=== PATIENT | male | born 1965 | race Caucasian/White ===

== ENCOUNTER 2018-08-04 07:48 | Day surgery (SDC) | payer MEDICARE, MEDICAID ==
[2018-08-03 14:43] VITALS: BMI 33.8
[2018-08-04 08:29] LABS: Hemoglobin 12.5 g/dL (14.0-18.0); Mean Corpuscular HGB CONC 32.4 g/dL (32.0-36.0); Mean Corpuscular Hemoglobin 26.7 pg (27.0-31.0); Mean Corpuscular Volume 82.5 fL (78.0-98.0); Platelet Count 347 thou/uL (130-400); RBC Distribution Width 13.3 % (11.5-14.5); Red Blood Cell (RBC) Count 4.68 mill/uL (4.70-6.10); White Blood Cell (WBC) Count 6.8 thou/uL (4.8-10.8)
[2018-08-04 08:43] LABS: PTT 27.5 SEC (22.9-36.1); Prothrombin Time 12.8 SEC (12.0-14.7)
[2018-08-04 08:54] LABS: Band 3 % (5-11); Eosinophils 1 % (0-10); Lymphocytes 29 % (21-51); MDiff Complete? YES; Monocytes 8 % (0-10); Neutrophil 59 % (42-75); RBC Morphology Normal
[2018-08-04 13:34] VITALS: BP 155/73; TEMP 98.5
--- NOTE | 2018-08-04 15:15 | CT ---
CT GUIDED PUBIC CATHETER PLACEMENT: DATE: 08/04/2018. HISTORY: Neurogenic bladder. Beach catheter in place. TECHNIQUE: The procedure including the risks and complications were explained to the patient and the patient's f amily and informed consent was obtained. The patient was placed on the CT scan table in the supine p osition. A noncontrasted CT scan was obtained at the level of the pelvis with grid localizer in place after th e bladder was filled with approximately 250 mL of normal saline. An area was then marked, and the ar e was meticulously prepped and drained in the usual sterile fashion. The skin and subcutaneous tissues were infiltrated with buffered 1% Lidocaine for local anesthesia at the intended puncture site. A small skin incision was made. A 12 Green[place]ic suprapubic catheter with inner cannula and trocar were advanced into the urinary bladder. The trocar and stiff inner cannula were removed, and the Beach catheter was advanced. There was re turn of clear urine. The distal balloon was filled with 10 mL of sterile water. The catheter was pl aced to gravity drainage. Three axial noncontrasted CT images were obtained demonstrating the suprap ubic catheter in place within the urinary bladder. The catheter was sutured in place utilizing 2-0 E thilon suture material. A dry sterile dressing was placed. The patient tolerated the procedure well and without immediate complication. The patient was briefly monitored in the radiology department and the patient was then discharged to Dr. Noel's [facility] for removal of the Beach catheter. IMPRESSION: Technically successful CT guided suprapubic catheter placement. POS: MARIA ELENA
== END 2018-08-04 11:40 ==
LOC: CT 07:48
PROVIDERS: ATTEND Urology
PROC: 0T9B30Z Drainage of Bladder with Drainage Device, Percutaneous Approach (ICD-10-PCS; principal; 2018-08-04)
DX: N31.9 Neuromuscular dysfunction of bladder, unspecified (principal); E11.9 Type 2 diabetes mellitus without complications; I25.10 Atherosclerotic heart disease of native coronary artery without angina pectoris; I10 Essential (primary) hypertension; F31.9 Bipolar disorder, unspecified; Z86.73 Personal history of transient ischemic attack (TIA), and cerebral infarction without residual deficits; Z86.718 Personal history of other venous thrombosis and embolism; Z79.01 Long term (current) use of anticoagulants; Z79.4 Long term (current) use of insulin; Z79.82 Long term (current) use of aspirin; Z79.899 Other long term (current) drug therapy
CPT/HCPCS: 51102; 77002; 85025; 85610; 85730; C2627; 36415

== ENCOUNTER 2018-10-05 08:36 | Day surgery (SDC) | payer MEDICARE, MEDICAID ==
[2018-10-04 16:14] VITALS: BMI 33.0
[2018-10-05 08:50] LABS: #Eosinphils 0.1 thou/uL (0.0-0.7); #Lymphocytes 1.6 thou/uL (1.20-3.40); #Monocytes 0.9 thou/uL (0.11-0.59); %Basophils 0.3 % (0.0-1.0); %Eosinophils 1.2 % (0.0-10.0); %Lymphocytes 16.2 % (21.0-51.0); %Neutrophils 73.2 % (42.0-75.0); Hemoglobin 11.8 g/dL (14.0-18.0); Mean Corpuscular HGB CONC 31.9 g/dL (32.0-36.0); Mean Corpuscular Hemoglobin 26.5 pg (27.0-31.0); Mean Corpuscular Volume 82.9 fL (78.0-98.0); Mean Platelet Volume 6.7 fL (7.4-10.4); Platelet Count 308 thou/uL (130-400); RBC Distribution Width 13.8 % (11.5-14.5); Red Blood Cell (RBC) Count 4.47 mill/uL (4.70-6.10); White Blood Cell (WBC) Count 9.6 thou/uL (4.8-10.8)
[2018-10-05 08:59] LABS: INR-International Normal Ratio 1.1; Prothrombin Time 13.8 SEC (12.0-14.7)
--- NOTE | 2018-10-05 12:22 | CT ---
PROCEDURE: CT Supra Pubic Catheter [facility] PROVIDED CLINICAL HISTORY: Urinary bladder dysfunction. Patient's prior suprapubic catheter was inadvertently removed. COMPARISON: None TECHNIQUE: After informed consent was obtained, the patient was placed on the CT scan table in the supine positi on. Patient's Beach catheter was clamped prior to this examination, and an additional 50 mL of normal saline was instilled into the urinary bladder via the patient's Beach catheter. However, patie nt was unable to tolerate significant distention of the urinary bladder. An area overlying the lower abdomen in an infraumbilical location was marked and then meticulously prepped and draped in th e usual sterile fashion. Skin and subcutaneous tissues were infiltrated with buffered 1% lidocaine for local anesthesia at the intended puncture site. Small skin incision was made. A 12 Nigerian suprapubic catheter with stiff inner cannula and trocar were advanced into the urinary bladder. Trocar and inner cannula were remove d, and the suprapubic catheter was advanced. There was a return of clear urine. Distal balloon was filled with 10 mL of sterile water. The catheter was placed to gravity drainage and sutured in place utilizing 2-0 Ethilon suture materia l. Follow-up imaging demonstrates the suprapubic catheter within the urinary bladder. IMPRESSION: Technically successful CT-guided percutaneous placement of a 12 Nigerian suprapubic catheter.
[2018-10-05 12:24] VITALS: BP 154/77; TEMP 97.8
== END 2018-10-05 12:00 | disposition home or self-care (01) ==
LOC: CT 08:36
PROVIDERS: ATTEND Urology
PROC: 0T7 Urinary System, Dilation (ICD-10-PCS; principal; 2018-10-05)
DX: N31.9 Neuromuscular dysfunction of bladder, unspecified (principal); N28.9 Disorder of kidney and ureter, unspecified; I10 Essential (primary) hypertension; E11.9 Type 2 diabetes mellitus without complications; I25.10 Atherosclerotic heart disease of native coronary artery without angina pectoris; K59.00 Constipation, unspecified; F31.9 Bipolar disorder, unspecified; J96.00 Acute respiratory failure, unspecified whether with hypoxia or hypercapnia
CPT/HCPCS: 51102; 77002; 85025; 85610; 85730; C2627; 36415

== ENCOUNTER 2020-04-23 09:51 | Outpatient (CLI) | payer MEDICARE, MEDICAID ==
--- NOTE | 2020-04-23 10:35 | RAD ---
KUB: 04/23/2020 COMPARISON: None HISTORY: Chronic kidney disease FINDINGS: Midline sternotomy wires are present. Partially imaged cardiac silhouette appears enlarged. The bowel gas pattern appears nonobstructed. There is a nonspecific calcification overlying the superior aspect of the iliac wing on the left marce uring 8 mm. There is an additional nonspecific calcification overlying the iliac bone on the right measuring 3-4 mm. No discrete calcification is seen in either upper quadrant. IMPRESSION: Abdominal calcifications, nonspecific. No upper abdominal calcifications are seen. The bruce wel gas pattern is nonobstructed. If there is clinical concern for stone disease, CT advised.
--- NOTE | 2020-04-23 12:09 | ULT ---
BILATERAL RENAL ULTRASOUND: Date: 04/23/2020 HISTORY: Chronic renal disease. FINDINGS: Real-time imaging of the right and left kidneys performed. The right kidney measures 12.7 cm and the left kidney measures 15.0 cm in length. No cysts, mass, or obstruction. Beach catheter is present in the bladder. IMPRESSION: Unremarkable renal ultrasound. POS: CARMEN
== END 2020-04-23 09:52 | disposition home or self-care (01) ==
LOC: ULT 09:51
PROVIDERS: ATTEND Urology
DX: Z43.5 Encounter for attention to cystostomy (principal); N18.9 Chronic kidney disease, unspecified; N40.1 Benign prostatic hyperplasia with lower urinary tract symptoms; R93.5 Abnormal findings on diagnostic imaging of other abdominal regions, including retroperitoneum
CPT/HCPCS: 74018; 76770